=== PATIENT | female | born 1940 | race Caucasian/White ===

== ENCOUNTER 2018-03-11 10:53 | Emergency (ER) | payer MEDICARE, BC ==
[2018-03-11 11:29] VITALS: BP 182/81
--- NOTE | 2018-03-11 12:19 | EDM.PDOC ---
ED HPI GENERAL MEDICAL PROBLEM - General Chief Complaint: Cardiovascular Problem Stated Complaint: HEART ISSUES Time Seen by Provider: 03/11/18 12:11 Source of Information: Reports: Patient, Family, RN Notes Reviewed History Limitations: Reports: No Limitations - History of Present Illness INITIAL COMMENTS - FREE TEXT/NARRATIVE: 77-year-old female presents to the emergency department with a complaint of chest pain, she has a known history of coronary artery disease underwent stenting a couple years ago, this morning she had an episode of chest pain with nausea and shortness of breath was across the center of the chest radiated into the back and up the left jaw episode lasted less than a minute. At this time she is pain-free no shortness of breath no nausea - Related Data Allergies Allergy/AdvReac Type Severity Reaction Status Date / Time erythromycin base Allergy Severe Anaphylactic Verified 04/04/16 15:16 [Erythromycin Base] Shock prochlorperazine edisylate Allergy Severe Anaphylactic Verified 04/04/16 15:16 [From Compazine] Shock prochlorperazine maleate Allergy Severe Anaphylactic Verified 04/04/16 15:16 [From Compazine] Shock niacin Allergy Intermediate Hives Verified 04/04/16 15:16 Home Meds: Home Meds Aspirin [Ecotrin] 81 mg PO DAILY 07/31/13 [History] Lisinopril [Zestril] 5 mg PO DAILY 07/31/13 [History] [place]-3 Fatty Acids [Fish Oil] 500 mg PO DAILY 07/31/13 [History] atorvaSTATin [Lipitor] 20 mg PO BEDTIME 04/04/16 [History] Past Medical History HEENT History: Reports: Impaired Vision Cardiovascular History: Reports: Stents Musculoskeletal History: Reports: Arthritis - Infectious Disease History Infectious Disease History: Reports: Chicken Pox, Measles, Mumps - Past Surgical History Cardiovascular Surgical History: Reports: Carotid Stents Social & Family History - Family History Cardiac: Reports: NM, Other (See Below) Other Cardiac Family History: brothers with cardiac vic Endocrine/Metabolic: Reports: Diabetes, type II - Tobacco Use Smoking Status *Q: Never Smoker - Caffeine Use Caffeine Use: Reports: Coffee - Recreational Drug Use Recreational Drug Use: No ED ROS GENERAL - Review of Systems Review Of Systems: See Below Constitutional: Reports: No Symptoms Respiratory: Reports: Shortness of Breath (Now resolved) Cardiovascular: Reports: Chest Pain (Now resolved) GI/Abdominal: Reports: Nausea (Now resolved) : Reports: No Symptoms Musculoskeletal: Reports: No Symptoms Skin: Reports: Wound (Recent tick bite wood tick) Neurological: Reports: No Symptoms ED EXAM, GENERAL - Physical Exam Exam: See Below Free Text/Narrative:: General: Female, not in any distress, alert and oriented x3 HEENT: head is atraumatic normocephalic, eyes pupils equal round reactive to light, sclera clear no conjunctivitis appreciated. Ears tympanic membranes clear and [place] landmarks and light reflex are present bilaterally canals are clear. Nose no septal deviation, nares are clear, no blood present. Mouth mucosa is moist and pink no erythema or exudate noted in soft palate, tongue is midline uvula is midline, dentition is intact. Neck: Supple no thyromegaly no tracheal deviation. Nodes: Cervical nodes subclavicular nodes nontender no palpable lymphadenopathy noted. Lungs: clear to auscultation bilaterally with symmetrical respirations, no adventitious noise appreciated. CV: Regular rate and rhythm S1 and S2 appreciated no murmurs rubs or gallops noted. Abdomen: Soft, nontender, no palpable masses or organomegaly appreciated, no distention no guarding bowel sounds are present, . Neuro: Cranial nerves II through XII grossly intact Skin: Warm and dry, intact, erythematous wound of the neck left side but the size of a dime Extremities: No lower extremity edema appreciated, Course - Vital Signs Text/Narrative:: heart score of 4 Last Recorded V/S: Last Vital Signs Temp 98.2 F 03/11/18 11:27 Pulse 69 03/11/18 11:27 Resp 12 03/11/18 11:27 BP 182/81 H 03/11/18 11:27 Pulse Ox 97 03/11/18 11:27 - Orders/Labs/Meds Orders: Active Orders 24 hr Category Date Time Status Cardiac Monitoring [RC] .As Directed Care 03/11/18 12:16 Active EKG Documentation Completion [RC] ASDIRECTED Care 03/11/18 12:16 Active Chest 2V [CR] Stat Exams 03/11/18 12:16 Taken EKG 12 Lead [EK] Stat Ther 03/11/18 12:16 Ordered Labs: Laboratory Tests 03/11/18 03/11/18 Range/Units 12:28 12:28 WBC 6.1 (4.5-11.0) K/uL RBC 4.55 (3.30-5.50) M/uL Hgb 13.9 (12.0-15.0) g/dL Hct 42.4 (36.0-48.0) % MCV 93 (80-98) fL MCH 31 (27-31) pg MCHC 33 (32-36) % Plt Count 281 (150-400) K/uL Neut % (Auto) 69 H (36-66) % Lymph % (Auto) 21 L (24-44) % [place] % (Auto) 8 H (2-6) % Eos % (Auto) 2 (2-4) % Baso % (Auto) 0 (0-1) % Sodium 140 (140-148) mmol/L Potassium 4.3 (3.6-5.2) mmol/L Chloride 104 (100-108) mmol/L Carbon Dioxide 29 (21-32) mmol/L Anion Gap 6.9 (5.0-14.0) mmol/L BUN 18 (7-18) mg/dL Creatinine 1.0 (0.6-1.0) mg/dL Est Cr Clr Drug Dosing 41.97 mL/min Estimated GFR (MDRD) 54 L (>60) Glucose 99 (74-106) mg/dL Calcium 8.6 (8.5-10.1) mg/dL Total Bilirubin 0.5 D (0.2-1.0) mg/dL AST 22 (15-37) U/L ALT 41 (12-78) U/L Alkaline Phosphatase 81 (46-116) U/L CK-MB (CK-2) 0.5 (0-3.6) mg/mL Troponin I < 0.017 (0.000-0.056) ng/mL Total Protein 7.0 (6.4-8.2) g/dL Albumin 3.6 (3.4-5.0) g/dL Globulin 3.4 (2.3-3.5) g/dL Albumin/Globulin Ratio 1.1 L (1.2-2.2) Departure - Departure Time of Disposition: 13:20 Disposition: Home, Self-Care 01 Condition: Good Clinical Impression: Atypical chest pain Referrals: PCP,None [Primary Care Provider] - Forms: ED Department Discharge Additional Instructions: Please followup with your primary care provider in 3-5 days if not better, please call return to the emergency department with worsening of symptoms. - My Orders Last 24 Hours: My Active Orders 03/11/18 12:16 Cardiac Monitoring [RC] .As Directed EKG Documentation Completion [RC] ASDIRECTED Chest 2V [CR] Stat EKG 12 Lead [EK] Stat - Assessment/Plan Last 24 Hours: My Active Orders 03/11/18 12:16 Cardiac Monitoring [RC] .As Directed EKG Documentation Completion [RC] ASDIRECTED Chest 2V [CR] Stat EKG 12 Lead [EK] Stat Plan: Assessment Acuity = acute Site and laterality = atypical chest pain complicated patient with known history of coronary artery disease Etiology = unknown Manifestations = none has remained asymptomatic while in the emergency department Location of injury = Home Lab values = CBC, CMP, CK-MB, troponin all negative EKG demonstrates a sinus rhythm no ST changes chest x-ray I did review films myself I cannot appreciate any acute process, the official read from radiology is pending Plan I did review lab work EKG results she remained chest pain free while in the emergency department without any treatment, plan is to follow-up with primary care 3-5 days for reevaluation This note was dictated using [employer] voice recognition software please call with any questions on syntax or grammar.
--- NOTE | 2018-03-11 15:03 | CR ---
CHEST: 2 view CLINICAL HISTORY:Chest pain COMPARISON:CT chest 2009 FINDINGS: Heart size and pulmonary vascularity are normal. There are atherosclerotic changes in the aorta.. No infiltrate effusion or pneumothorax is seen. Multiple nodular densities were seen on prior CT chest. IMPRESSION: No acute cardiopulmonary process Nodular densities bilaterally. These are felt to represent previous granulomatous exposure
== END 2018-03-11 13:34 | disposition home or self-care (01) ==
LOC: JP.ED 10:53
DX: R07.89 Other chest pain (principal); Z88.1 Allergy status to other antibiotic agents; Z79.82 Long term (current) use of aspirin
CPT/HCPCS: 36415; 71046; 71046-26; 80053; 82553; 84484; 85025; 93005; 99284; 99284-25